=== PATIENT | female | born 1980 | race Caucasian/White ===

== ENCOUNTER 2023-01-01 10:15 | Inpatient (IN) | payer OTHER ==
[2022-12-29 09:49] LABS: Hemoglobin 12.6 g/dL (12.0-15.5); Platelet Count 199 10x3/uL (150-450)
[2022-12-29 10:43] LABS: Syphilis Antibody Nonreactive (Nonreactive); Syphilis Antibody Index 0.05 S/CO (<1.00 Non-Reactive)
[2022-12-29 10:44] LABS: HBSAg Index 0.14 S/CO (0-0.99); Hep B Surf Ag Non-Reactive S/CO (NonReactive)
[~2023-01-01 10:15] MED LIST: Oxytocin 10 UNITS/ML VIAL ONE
[2023-01-01] MEDS ORDERED: Promethazine HCl 25 MG/ML VIAL IM PRN ×3 (10:25→15:32)
[2023-01-01] MEDS ORDERED: Ondansetron PF 4 MG/2 ML Vial IVP PRN ×3 (10:25→15:32)
[2023-01-01] MEDS ORDERED: NS w/ Oxytocin 30 units 500 ML IV SCH (10:25)
[2023-01-01] MEDS ORDERED: Famotidine/PF 20 mg/2ml Vial SLOW IVP PRN (10:25)
[2023-01-01] MEDS ORDERED: Bicitra 30 ML UDCUP PO PRN (10:25)
[2023-01-01] MEDS ORDERED: CEFAZOLIN 2 GM in Sodium Chloride 0.9% 100 ML IVPB SCH (10:25)
[2023-01-01] MEDS ORDERED: hydrALAZINE 20 MG/ML VIAL SLOW IVP PRN ×2 (10:25→15:32)
[2023-01-01] MEDS ORDERED: Lactated Ringer's 1,000 ML IV SCH (10:25)
[2023-01-01] MEDS ORDERED: Communication Order-Pharmacy FS SCH (10:45)
[2023-01-01] MEDS ORDERED: Ondansetron HCl/PF 4 MG/2 ML Vial IVP PRN (10:45)
[2023-01-01] MEDS ORDERED: Ketorolac Tromethamine 30 MG/ML VIAL IVP PRN (10:45)
[2023-01-01] MEDS ORDERED: Meperidine HCl/PF 25 MG/ML VIAL SLOW IVP PRN (10:45)
[2023-01-01] MEDS ORDERED: Naloxone HCl 0.4 mg/ml Vial IVP PRN ×2 (10:45)
[2023-01-01] MEDS ORDERED: Moisturizing Cream (Eucerin) 113 GM JAR TOP PRN (10:45)
[2023-01-01] MEDS ORDERED: Fentanyl 100 MCG/2 ML VIAL SLOW IVP PRN (10:45)
[2023-01-01] MEDS ORDERED: HYDROmorphone 2 MG/ML VIAL SLOW IVP PRN (10:45)
[2023-01-01] MEDS ORDERED: Naloxone HCl 0.4 mg/ml Vial IV PRN (10:45)
[2023-01-01] MEDS ORDERED: Ketorolac Tromethamine 30 MG/ML VIAL IVP SCH (10:45)
[2023-01-01] MEDS ORDERED: Promethazine HCl 25 MG SUPP PR PRN (10:45)
[2023-01-01] MEDS ORDERED: diphenhydrAMINE 50 MG/ML VIAL IVP PRN (10:45)
[2023-01-01] MEDS ORDERED: Fentanyl 100 MCG/2 ML VIAL ONE (10:48)
[2023-01-01] MEDS ORDERED: Morphine PF 10 MG/10 ML VIAL ONE (10:48)
[2023-01-01] MEDS ORDERED: Dexamethasone 4 mg/ml Vial ONE (10:49)
[2023-01-01] MEDS ORDERED: Ondansetron PF 4 MG/2 ML Vial ONE (10:49)
[2023-01-01 11:11] VITALS: BMI 31.1
[2023-01-01] MEDS ORDERED: Oxytocin 10 UNITS/ML VIAL ONE (13:11)
[2023-01-01] MEDS ORDERED: Simethicone Chewable 80 MG TAB PO PRN (15:32)
[2023-01-01] MEDS ORDERED: Acetaminophen 325 MG TAB PO PRN (15:32)
[2023-01-01] MEDS ORDERED: diphenhydrAMINE 25 MG CAP PO PRN (15:32)
[2023-01-01] MEDS ORDERED: Boostrix 0.5 ML (Tdap) VIAL (>/=7 yrs of age) IM ONE (15:32)
[2023-01-01] MEDS ORDERED: Bisacodyl 10 MG SUPP PR PRN (15:32)
[2023-01-01] MEDS ORDERED: Lanolin Ointment 7 GM TUBE TOP PRN (15:32)
[2023-01-01] MEDS: Ferrous Sulfate 325 MG TAB PO SCH (20:16)
[2023-01-01] MEDS: Docusate 100 MG CAP PO SCH (21:04)
[2023-01-01] MEDS ORDERED: HYDROcodone/Acetaminophen 5/325 mg Tablet PO PRN (23:00)
[2023-01-02 04:27] LABS: Hemoglobin 11.1 g/dL (12.0-15.5); Mean Corpuscular HGB CONC 33.6 g/dL (32.0-36.0); Mean Corpuscular Hemoglobin 30.5 pg (27.0-33.0); Mean Corpuscular Volume 90.7 fl (81.6-98.3); Mean Platelet Volume 11.3 fl (7.4-10.4); Platelet Count 192 10x3/uL (150-450); RBC Distribution Width 13.5 % (11.5-14.5); Red Blood Cell (RBC) Count 3.64 10x6/uL (3.90-5.03); White Blood Cell (WBC) Count 20.5 10x3/uL (3.5-10.5)
[2023-01-02] MEDS: Prenatal Vitamin 1 TAB PO SCH (08:45)
[2023-01-02] MEDS: Docusate 100 MG CAP PO SCH ×2 (08:45→21:19)
[2023-01-02] MEDS: Ferrous Sulfate 325 MG TAB PO SCH (08:46)
[2023-01-02] MEDS: Ibuprofen 800 MG TAB PO SCH ×2 (14:12→21:19)
[2023-01-02] MEDS: HYDROcodone/Acetaminophen 5/325 mg Tablet PO PRN (17:33)
[2023-01-03] MEDS: Ferrous Sulfate 325 MG TAB PO SCH ×2 (04:11→08:57)
[2023-01-03] MEDS: HYDROcodone/Acetaminophen 5/325 mg Tablet PO PRN ×2 (06:08→12:18)
[2023-01-03] MEDS: Ibuprofen 800 MG TAB PO SCH (06:08)
[2023-01-03] MEDS: Docusate 100 MG CAP PO SCH (08:58)
[2023-01-03] MEDS: Prenatal Vitamin 1 TAB PO SCH (08:58)
[2023-01-03 11:46] VITALS: BP 115/77; TEMP 98.7
== END 2023-01-03 13:40 | disposition home or self-care (01) | DRG 788 ==
LOC: CSHLD 10:15 → CSHPP 16:00
PROVIDERS: ADMIT Student in an Organized Health Care Education/Training Program; ATTEND Student in an Organized Health Care Education/Training Program
PROC: 10D00Z1 Extraction of Products of Conception, Low, Open Approach (ICD-10-PCS; principal; 2023-01-01)
DX: O32.1XX0 Maternal care for breech presentation, not applicable or unspecified (principal); Z3A.39 39 weeks gestation of pregnancy; Z37.0 Single live birth; Z79.82 Long term (current) use of aspirin; Z79.899 Other long term (current) drug therapy
CPT/HCPCS: 36415; 51702; 85014; 85018; 85027; 85049; 86780; 86850; 86900; 86901; 87340; J1100; J1885; J2274; J2405; J2590; J3010; J3490; S0028